=== PATIENT | male | born 1945 | race Caucasian/White ===

== ENCOUNTER 2016-07-17 08:56 | Emergency (ER) | payer MEDICARE, OTHER ==
[~2016-07-17] VITALS: Ht 175.3 cm; Wt 77.6 kg
[2016-07-17 09:01] VITALS: BP 120/70; PULSE 66; RESP 16; TEMP 97.8; O2SAT 96
[2016-07-17] MEDS ORDERED: TAMS0.4C4 PO (09:07)
--- NOTE | 2016-07-17 09:17 | PD ---
HPI Chief Complaint: Dizziness Time Seen by Provider: 09:07 Travel History International Travel<30 days: No Contact w/Intl Traveler<30days: No Traveled to known affect area: No History of Present Illness HPI 70-year-old male states since Sunday he's been having intermittent dizziness. He states it's mainly when he stands up. He denies any currently. He states he has no associated symptoms with it including weakness, chest pain or other concurrent complaints.. He denies recurrent history of this. He denies taking any blood thinner medications. Quality is moving sensation. Severity is intermittent with none currently. [facility]LY [facility] Past Medical History Medical History: Denies Significant Hx Cancer: No Diabetes: No Diminished Hearing: Yes (BL hearing aids) Genitourinary: Yes (Frequency/urgency ) Hepatitis: Yes Hiatal Hernia: No Thyroid Disease: No Tetanus Vaccination: < 5 Years Influenza Vaccination: No Past Surgical History Oral Surgery: Yes (ADENOTONSILLECTOMY) Pacemaker: No Tonsillectomy: Yes (& adenoids) Other Surgery: Yes Social History Alcohol Use: No Tobacco Use: No Substance Use: No Allergies-Medications (Allergen,Severity, Reaction): Coded Allergies: No Known Allergies (Verified , 07/17/16) Uncoded Allergies: CITRUS (Allergy, Mild, BLISTERS, 11/22/04) Reported Meds & Prescriptions Reported Meds & Active Scripts Active Reported Tamsulosin (Tamsulosin HCl) 0.4 Mg Cap 0.4 Mg PO HS Review of Systems Except as stated in HPI: all other systems reviewed are Neg Physical Exam Narrative GENERAL: Well-nourished, well-developed patient. SKIN: Warm and dry. HEAD: Normocephalic and atraumatic. EYES: No injection or drainage. ENT: No nasal drainage noted. Bilateral TMs clear, posterior oropharynx without exudate or erythema NECK: Supple, trachea midline. Nontender in midline CARDIOVASCULAR: Regular rate and rhythm RESPIRATORY: Breath sounds equal bilaterally. No accessory muscle use. GASTROINTESTINAL: Abdomen soft, non-tender, nondistended. EXTREMITIES: No edema. BACK: Nontender without obvious deformity. NEUROLOGICAL: Awake and alert. Motor and sensory grossly within normal limits. Normal speech. 5 out of 5 in all 4 extremities, equal grasp bilaterally, no facial droop Data Data Last Documented VS Vital Signs Date Time Temp Pulse Resp B/P Pulse Ox O2 Delivery O2 Flow Rate FiO2 07/17/16 10:30 57 14 140/86 95 Room Air 07/17/16 09:01 97.8 Orders Magnesium (Mg) (07/17/16 09:14) Phosphorus (Po4) (07/17/16 09:14) Complete Blood Count With Diff (07/17/16 09:14) Basic Metabolic Panel (Bmp) (07/17/16 09:14) Creatine Kinase (Cpk) (07/17/16 09:14) Urinalysis - C+S If Indicated (07/17/16 09:14) Ct Brain W/O Iv Contrast(Rout) (07/17/16 ) Chest, Single Ap (07/17/16 ) Electrocardiogram (07/17/16 ) Iv Access Insert/Monitor (07/17/16 09:14) Ecg Monitoring (07/17/16 09:14) Oximetry (07/17/16 09:14) Labs Laboratory Tests Test 07/17/16 07/17/16 09:25 09:30 White Blood Count 7.1 TH/MM3 Red Blood Count 4.77 MIL/MM3 Hemoglobin 14.1 GM/DL Hematocrit 41.8 % Mean Corpuscular Volume 87.5 FL Mean Corpuscular Hemoglobin 29.5 PG Mean Corpuscular Hemoglobin 33.7 % Concent Red Cell Distribution Width 11.6 % Platelet Count 217 TH/MM3 Mean Platelet Volume 7.5 FL Neutrophils (%) (Auto) 50.0 % Lymphocytes (%) (Auto) 32.1 % Monocytes (%) (Auto) 8.0 % Eosinophils (%) (Auto) 8.4 % Basophils (%) (Auto) 1.5 % Neutrophils # (Auto) 3.5 TH/MM3 Lymphocytes # (Auto) 2.3 TH/MM3 Monocytes # (Auto) 0.6 TH/MM3 Eosinophils # (Auto) 0.6 TH/MM3 Basophils # (Auto) 0.1 TH/MM3 CBC Comment DIFF FINAL Differential Comment Sodium Level 144 MEQ/L Potassium Level 3.9 MEQ/L Chloride Level 107 MEQ/L Carbon Dioxide Level 29.3 MEQ/L Anion Gap 8 MEQ/L Blood Urea Nitrogen 25 MG/DL Creatinine 1.20 MG/DL Estimat Glomerular Filtration 60 ML/MIN Rate Random Glucose 100 MG/DL Calcium Level 8.8 MG/DL Phosphorus Level 2.7 MG/DL Magnesium Level 2.0 MG/DL Total Creatine Kinase 52 U/L Urine Collection Type CLEAN CATCH Urine Color YELLOW Urine Turbidity CLEAR Urine pH 5.5 Urine Specific [place] 1.021 Urine Protein NEG mg/dL Urine Glucose (UA) NEG mg/dL Urine Ketones NEG mg/dL Urine Occult Blood SMALL Urine Nitrite NEG Urine Bilirubin NEG Urine Leukocyte Esterase NEG Urine RBC 4-9 /hpf Urine WBC 0-2 /hpf Urine WBC Clumps Urine Squamous Epithelial 0-2 /hpf Cells Urine Bacteria RARE /hpf Microscopic Urinalysis Comment CULT NOT INDICATED MDM Medical Decision Making Medical Screen Exam Complete: Yes Emergency Medical Condition: Yes Medical Record Reviewed: Yes (past history confirmed) Interpretation(s) EKG shows NSR, no ST elevation or depression, and no arrhythmias. No significant T-wave inversions. Last 24 hours Impressions Chest X-Ray 07/17/16 0000 Signed Impressions: Service Date/Time: Sunday, July 17, 2016 09:20 - CONCLUSION: No acute disease. Guanako Thomas MD CBC & BMP Diagram 07/17/16 09:25 Last [address] 07/17/16 0000 Signed Impressions: Service Date/Time: Sunday, July 17, 2016 09:49 - CONCLUSION: Negative for an acute process. Jeffrey Anderson MD FACR Chest X-Ray 07/17/16 0000 Signed Impressions: Service Date/Time: Sunday, July 17, 2016 09:20 - CONCLUSION: No acute disease. Guanako Thomas MD Differential Diagnosis Anemia, vertigo, dehydration, intracranial.... Narrative Course Patient with benign vitals and exam. Patient agrees to limited ER workup with blood work, urinalysis, chest x-ray, CT brain and clinical monitoring with reevaluation. ed workup no acute, Patient denies any new complaints and states no significant symptoms here, Patient happy with care, all questions answered. Patient knows that follow up is incumbent on them and to return to the emergency room immediately if new or worsening symptoms develop. Patient given strict return precautions, vitals reviewed and are normal, agrees to further workup as an outpatient. Diagnosis Primary Impression: Dizziness Patient Instructions: General Instructions Additional Instructions: follow with primary tommorrow, return as needed Med/Other Pt SpecificInfo: No Change to Meds Disposition: DISCHARGE HOME Condition: Stable Odilia Gonsales MD July 17, 2016 09:17
[2016-07-17 09:25] VITALS: O2SAT 95
--- NOTE | 2016-07-17 09:33 | RADHPO ---
EXAM DATE/TIME: 07/17/2016 09:20 [facility] COMPARISON: No previous studies available for comparison. INDICATIONS : Dizziness since sunday. MEDICAL HISTORY : None. SURGICAL HISTORY : None. ENCOUNTER: Initial ACUITY: 3 days PAIN SCORE: 0/10 LOCATION: Bilateral chest FINDINGS: A single view of the chest demonstrates the lungs to be symmetrically aerated without evidence of mas s, infiltrate or effusion. Tortuous thoracic aorta. The cardiomediastinal contours are unremarkable. Osseous structures are intact. CONCLUSION: No acute disease. Guanako Thomas MD on July 17, 2016 at 9:31 Board Certified Radiologist. This report was verified electronically.
[2016-07-17 09:36] LABS: AUTOMATED NEUTROPHIL # 3.5 TH/MM3 (1.8-7.7); BASOPHIL # 0.1 TH/MM3 (0-0.2); BASOPHIL % 1.5 % (0.0-2.0); EOSINOPHIL # 0.6 TH/MM3 (0-0.4); EOSINOPHIL % 8.4 % (0.0-4.0); HEMATOCRIT 41.8 % (39.0-51.0); HEMO FLAGS DIFF FINAL; LYMPH % 32.1 % (9.0-44.0); LYMPHOCYTE # 2.3 TH/MM3 (1.0-4.8); MEAN CELL VOLUME 87.5 FL (80.0-100.0); MEAN CORPUSCULAR HEMOGLOBIN 29.5 PG (27.0-34.0); MEAN CORPUSCULAR HGB CONC 33.7 % (32.0-36.0); PLATELET COUNT 217 TH/MM3 (150-450); RED BLOOD COUNT 4.77 MIL/MM3 (4.50-5.90); RED CELL DISTRIBUTION WIDTH 11.6 % (11.6-17.2); WHITE BLOOD COUNT 7.1 TH/MM3 (4.0-11.0)
[2016-07-17 09:37] LABS: BLOOD, URINE SMALL (NEG); GLUCOSE,URINE NEG (NEG); KETONE, URINE NEG (NEG); NITRITE,URINE NEG (NEG); PH, URINE 5.5 (5.0-8.5)
[2016-07-17 09:42] LABS: METHOD OF COLLECTION CLEAN CATCH; URINE COLOR YELLOW (YELLW/STRAW)
[2016-07-17 09:43] LABS: WBC, URINE 0-2 /hpf (0-5)
[2016-07-17 09:44] LABS: BACTERIA, URINE RARE /hpf; COMMENT (UR) CULT NOT INDICATED; CULTURE IF INDICATED CULT NOT INDICATED; SQUAMOUS EPITHELIAL CELL URINE 0-2 /hpf (0-5)
[2016-07-17 09:53] LABS: BICARBONATE 29.3 MEQ/L (21.0-32.0)
[2016-07-17 09:56] LABS: POTASSIUM 3.9 MEQ/L (3.5-5.1)
--- NOTE | 2016-07-17 10:15 | RADHPO ---
EXAM DATE/TIME: 07/17/2016 09:49 [facility] COMPARISON: No previous studies available for comparison. INDICATIONS : Dizziness. RADIATION DOSE: 65.41 CTDIvol (mGy) MEDICAL HISTORY : None SURGICAL HISTORY : Tonsillectomy. ENCOUNTER: Initial ACUITY: 3 days PAIN SCALE: 0/10 LOCATION: cranial TECHNIQUE: Multiple contiguous axial images were obtained of the head. Using automated exposure control and adj ustment of the mA and/or kV according to patient size, radiation dose was kept as low as reasonably a chievable to obtain optimal diagnostic quality images. FINDINGS: CEREBRUM: The ventricles are normal for age. No evidence of midline shift, mass lesion, hemorrhage or acute in farction. No extra-axial fluid collections are seen. POSTERIOR FOSSA: The cerebellum and brainstem are intact. The 4th ventricle is midline. The cerebellopontine angle i s unremarkable. EXTRACRANIAL: The visualized portion of the orbits is intact. SKULL: The calvaria is intact. No evidence of skull fracture. CONCLUSION: Negative for an acute process. Jeffrey Anderson MD FACR on July 17, 2016 at 10:12 Board Certified Radiologist. This report was verified electronically.
[2016-07-17 10:30] VITALS: BP 140/86; PULSE 57; RESP 14; O2SAT 95
--- NOTE | 2016-07-17 11:11 | EKG ---
Date Performed: 07/17/2016 Time Performed: 09:17:10 PTAGE: 70 years EKG: Sinus rhythm Normal ECG PREVIOUS TRACING : 07/19/2010 15.31 DOCTOR: Chad Lambert Interpretating Date/Time 07/17/2016 11:10:32
== END 2016-07-17 10:35 | disposition home or self-care (01) ==
LOC: PHED 08:56
DX: R42 Dizziness and giddiness (principal); Z79.899 Other long term (current) drug therapy
CPT/HCPCS: 70450; 71010; 80048; 81001; 82550; 83735; 84100; 85025; 93005